=== PATIENT | male | born 1975 | race Caucasian/White ===

== ENCOUNTER 2016-08-31 17:46 | Emergency (ER) | payer OTHER ==
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
[2016-08-31 18:31] LABS: Basophils # (A) 0.1 k/uL (0-0.2); Basophils % (A) 1 %; Eosinophils # (A) 0.2 k/uL (0-0.7); Eosinophils % (A) 2 %; HCT 48.2 % (39.0-53.0); HDW 2.83; HGB 16.8 gm/dL (13.0-17.5); Luc # (Auto) 0.17; Luc % (Auto) 2; Lymphocytes # (A) 1.8 k/uL (1.0-4.8); Lymphocytes % (A) 21 %; MCH 32.1 pg (25.0-35.0); MCHC 34.8 g/dL (31.0-37.0); MCV 92.1 fL (80.0-100.0); Mean Platelet Volume 6.5; Monocytes # (A) 0.5 k/uL (0-1.0); Monocytes % (A) 6 %; Neutrophils # (A) 5.9 k/uL (1.3-7.7); Neutrophils % (A) 68 %; RBC 5.24 m/uL (4.30-5.90); RDW 13.2 % (11.5-15.5); WBC 8.6 k/uL (3.8-10.6); WBC (Perox) 8.42
--- NOTE | 2016-08-31 18:37 | XR ---
EXAMINATION TYPE: XR chest 2V DATE OF EXAM: 08/31/2016 6:34 PM COMPARISON: 13/08/2011 HISTORY: 40-year-old male with cough TECHNIQUE: PA and lateral views FINDINGS: The cardiomediastinal silhouette, aorta, and pulmonary vasculature are within normal limits. Lungs an d pleural spaces are clear. IMPRESSION: No acute cardiopulmonary process.
--- NOTE | 2016-08-31 18:39 | XR ---
EXAMINATION TYPE: XR cervical spine comp DATE OF EXAM: 08/31/2016 6:34 PM COMPARISON: NONE HISTORY: 40-year-old male with neck and jaw pain TECHNIQUE: 5 views FINDINGS: No predental space widening or prevertebral soft tissue swelling. Reversal of the normal cervical kostas dosis could be positional or due to muscle spasm. Alignment is maintained. Moderate disc space narrow ing with endplate spondylosis especially in the mid cervical spine with corresponding uncovertebral j oint arthropathy. On the left, no significant bony spondylotic neuroforaminal narrowing. On the right , there is mild narrowing at C3-C4. Normal odontoid view. IMPRESSION: Moderate spondylotic change mid cervical spine. Reversal of the normal cervical lordosis could be pos itional or due to muscle spasm. Mild bony spondylotic neuroforaminal narrowing on the right at C3-C4.
[2016-08-31 18:40] LABS: ALT 53 U/L (21-72); AST 31 U/L (17-59); Alkaline Phosphatase 77 U/L (38-126); Anion Gap 12 mmol/L; Blood Urea Nitrogen 17 mg/dL (9-20); Calcium 10.1 mg/dL (8.4-10.2); Carbon Dioxide 25 mmol/L (22-30); Chloride 103 mmol/L (98-107); Glucose 166 mg/dL (74-99); Non-African American GFR(MDRD) >60 (>60 ml/min/1.73 sqM); Potassium 4.1 mmol/L (3.5-5.1); Sodium 140 mmol/L (137-145); Total Bilirubin 0.7 mg/dL (0.2-1.3); Total Protein 7.9 g/dL (6.3-8.2)
--- NOTE | 2016-08-31 18:46 | XR ---
EXAMINATION TYPE: XR mandible complete DATE OF EXAM: 08/31/2016 6:38 PM COMPARISON: NONE HISTORY: 40-year-old male with a jaw pain TECHNIQUE: 5 views FINDINGS: Leftward nasal septal deviation. There is a plate with a 4 screws at the level of the mandibular body on the left. Some subtle cortical lucency along the inferior margin of the mandibular body at this l evel likely relates to residual fracture deformity. No acute fracture, periostitis, or emilio osteomye litis is seen. The TMJs appear intact. Patient is partially edentulous. Long styloid processes. IMPRESSION: 1. Prior plate and screw fixation along the lateral margin of the left mandibular body. 2. Leftward nasal septal deviation and partially dentulous. No acute osseous abnormality seen. 3. Long styloid processes may represent incidental ligamentous ossification. Correlate for any sympto ms of [place] syndrome.
[2016-08-31 19:05] VITALS: BP 168/96; PULSE 110; RESP 17; TEMP 97.8
== END 2016-08-31 19:22 | disposition home or self-care (01) ==
LOC: EC 17:46
DX: S03.42XA Sprain of jaw, left side, initial encounter (principal); J06.9 Acute upper respiratory infection, unspecified; F17.200 Nicotine dependence, unspecified, uncomplicated; M47.812 Spondylosis without myelopathy or radiculopathy, cervical region; M99.71 Connective tissue and disc stenosis of intervertebral foramina of cervical region; Z79.899 Other long term (current) drug therapy; Z98.890 Other specified postprocedural states; Y04.0XXA Assault by unarmed brawl or fight, initial encounter
CPT/HCPCS: 36415; 70110; 71020; 72050; 80053; 85025; 99284

== ENCOUNTER 2017-12-30 11:33 | Emergency (ER) | payer OTHER ==
[2017-12-30 11:42] VITALS: RESP 18
[2017-12-30] MEDS ORDERED: LIDOCAINE 1% INJ 10MG/ML (20 ML MDV) SQ ONE (13:46)
--- NOTE | 2017-12-30 13:56 | ED ---
Skin/Abscess/FB HPI - General Chief complaint: Skin/Abscess/Foreign Body Stated complaint: Abcess on knee Time Seen by Provider: 12/30/17 12:46 Source: patient Mode of arrival: ambulatory Limitations: no limitations - History of Present Illness Initial comments: This a 42-year-old male past medical history of hypertension and previous MRSA infection in 2014 who presents today for chief complaint of boil to the left anterior thigh. Patient states that Friday he noticed a small palpable-like lesion to the left anterior thigh superior to the knee, he was able to squeeze the area and remove some pus in the shower. His girlfriend stated she was able to get black hair out it when squeezing it Friday. When the redness surrounding the pimple-like lesion was expanding pt presented to the ER for antibiotics worried about a MRSA infection. Patient denies any recent fever, chills, shortness of breath, chest pain, back pain, abdominal pain, nausea or vomiting, numbness or tingling, dysuria or hematuria, constipation or diarrhea, headaches or visual changes, or any other complaints. - Related Data Home Medications Medication Instructions Recorded Confirmed Dextroamphetamine/Amphetamine 30 mg PO AC-TID 08/31/16 12/30/17 [Adderall] Gabapentin 600 mg PO AC-TID 08/31/16 12/30/17 Ibuprofen [Motrin] 800 mg PO Q8H PRN 12/30/17 12/30/17 Promethaz-Cod 6.25-10 mg/5 ml 5 ml PO HS 12/30/17 12/30/17 [Phenergan with Codeine] Previous Rx's Medication Instructions Recorded Cephalexin [Keflex] 500 mg PO Q6HR 7 Days #28 cap 12/30/17 Sulfamethox-Tmp 800-160Mg [Bactrim 1 tab PO Q12HR 7 Days #14 tab 12/30/17 DS 800-160 mg] Allergies Allergy/AdvReac Type Severity Reaction Status Date / Time No Known Allergies Allergy Verified 12/30/17 13:01 Review of Systems ROS Statement: Those systems with pertinent positive or pertinent negative responses have been documented in the HPI. ROS Other: All systems not noted in ROS Statement are negative. Constitutional: Denies: fever, chills, weakness, weight change Eyes: Denies: vision change ENT: Denies: throat pain Respiratory: Denies: cough, dyspnea, wheezes, hemoptysis, stridor Cardiovascular: Denies: chest pain, palpitations, orthopnea Endocrine: Denies: fatigue Gastrointestinal: Denies: abdominal pain, nausea, vomiting, diarrhea, constipation Genitourinary: Denies: urgency, dysuria, frequency, hematuria Musculoskeletal: Denies: back pain, joint swelling, arthralgia Skin: Denies: rash, lesions Neurological: Denies: numbness, paresthesias, confusion, abnormal gait Past Medical History Past Medical History: No Reported History Additional Past Medical History / Comment(s): neck pain History of Any Multi-Drug Resistant Organisms: MRSA Date of last positivie culture/infection: 12/28/14 MDRO Source:: Right Leg Past Surgical History: No Surgical Hx Reported Additional Past Surgical History / Comment(s): jaw surgery Past Psychological History: No Psychological Hx Reported Smoking Status: Current every day smoker Past Alcohol Use History: None Reported Past Drug Use History: None Reported General Exam - General Exam Comments Initial Comments: General: The patient is awake and alert, in no distress, and does not appear acutely ill. Eye: Pupils are equal, round and reactive to light, extra-ocular movements are intact. No nystagmus. There is normal conjunctiva bilaterally. No signs of icterus. Ears, nose, mouth and throat: There are moist mucous membranes and no oral lesions. Neck: The neck is supple, there is no tenderness or JVD. Cardiovascular: There is a regular rate and rhythm. No murmur, rub or gallop is appreciated. Respiratory: Lungs are clear to auscultation, respirations are non-labored, breath sounds are equal. No wheezes, stridor, rales, or rhonchi. Musculoskeletal: Normal ROM, no tenderness of the LE b/l. Strength 5/5 of the LE b/l. Sensation intact. Pulses equal bilaterally 2+. Neurological: A&O x 3. CN II-XII intact, There are no obvious motor or sensory deficits. Coordination appears grossly intact. Speech is normal. Skin: Skin is warm and dry and no rashes or lesions are noted. Warm, tender circular area of induration with overlying erythema about 4 x 4 centimeters just superior to the left knee over the anterior thigh. There is a central opening, no active drainage. Blanchable. Psychiatric: Cooperative, appropriate mood & affect, normal judgment. Limitations: no limitations Course Vital Signs 12/30/17 12/30/17 11:38 15:18 Temperature 99.3 F 97.7 F Pulse Rate 126 H 104 H Respiratory 18 18 Rate Blood Pressure 124/82 160/74 O2 Sat by Pulse 98 98 Oximetry Procedures - Procedures Initial comment: Abscess cleansed with iodine, patient refused lidocaine anesthesia locally stating it hurts just as much as a poke with the scalpel. Past centimeter incision was made over the anterior abscess a very small amount of purulent drainage was removed from the abscess and cultured. Area irrigated with sterile water. Sterile bandage applied. Medical Decision Making - Medical Decision Making 42-year-old male with past medical history of MRSA infection presenting for abscess to the left anterior thigh. Physical examination revealed a palpable abscess, that was indurated with surrounding erythema concerning for cellulitis abscess. As this was indeed, drainage cx. Patient was started on Bactrim and Keflex, for soft tissue infection with MRSA coverage. Case is discussed in detail and patient was evaluated person by Dr. Alarcon who agrees the impression and plan. Patient heart rate is elevated at 126, however he states his heart rate is never below 100bpm, he takes Adderall and took 2 coffees in the waiting room. It is time for patient is stable for discharge, with instruction to follow primary care provider one to 2 days. Patient was instructed to return to emergency department for worsening symptoms. Disposition Clinical Impression: Cellulitis and abscess of left lower extremity Disposition: HOME SELF-CARE Condition: Good Instructions: Abscess Incision and Drainage (ED) Additional Instructions: Please use medication as discussed. Please follow-up with family doctor in the next 2 days of symptoms have not improved. Please return to emergency room if the symptoms increase or worsen or for any other concerns. Prescriptions: Cephalexin [Keflex] 500 mg PO Q6HR 7 Days #28 cap Sulfamethox-Tmp 800-160Mg [Bactrim DS 800-160 mg] 1 tab PO Q12HR 7 Days #14 tab Is patient prescribed a controlled substance at d/c from ED?: No Referrals: Alfredo Aguirre MD [Primary Care Provider] - 1-2 days Time of Disposition: 14:55
[2017-12-30 15:19] VITALS: BP 160/74; PULSE 104; TEMP 97.7
== END 2017-12-30 15:18 | disposition home or self-care (01) ==
LOC: EC 11:33
DX: L02.416 Cutaneous abscess of left lower limb (principal); L03.116 Cellulitis of left lower limb; F17.200 Nicotine dependence, unspecified, uncomplicated; Z86.14 Personal history of Methicillin resistant Staphylococcus aureus infection; Z79.899 Other long term (current) drug therapy
CPT/HCPCS: 10060; 87070; 87077; 87186; 87205; 99283

== ENCOUNTER 2019-07-21 19:07 | Emergency (ER) | payer OTHER ==
[2019-07-21 19:35] VITALS: RESP 18
--- NOTE | 2019-07-21 19:36 | ED ---
General Adult HPI - General Source: patient, RN notes reviewed, old records reviewed Mode of arrival: ambulatory Limitations: no limitations <Michael Alarcon - Last Filed: 07/21/19 20:50> <Sanjeev Fields - Last Filed: 07/21/19 22:20> - General Chief complaint: Chest Pain Stated complaint: Chest pain Time Seen by Provider: 07/21/19 19:10 - History of Present Illness Initial comments: This is a 43-year-old male who presents emergency Department complaining of left-sided chest pain he states the pain mostly starts in the back and radiates to the chest. Patient states she's been coughing last 3 days and he had a fever vomited 3 and that stopped yesterday. Patient states the pain is there particularly when he coughs or when he moves. Patient when he sits still and isn't taking deep breaths or coughing he has no pain patient states he did not the flu shot.. Patient states when he starts having that sharp chest pain it is difficult to catch his breath but in general he is not short of breath he denies any diaphoresis or nausea. Patient states she does smoke and does have high blood pressure. Patient states his mother father or siblings are free of cardiac disease at this time. Patient denies any swelling to her legs or calf tenderness. Patient states the last day had a fever was yesterday. Patient stated that the exertion did not appear to affect his chest pain at all. (Michael Alarcon) - Related Data Home Medications Medication Instructions Recorded Confirmed Ibuprofen [Motrin] 800 mg PO TID PRN 12/30/17 07/21/19 Gabapentin 600 mg PO TID PRN 07/21/19 07/21/19 Lisdexamfetamine Dimesylate 30 mg PO DAILY 07/21/19 07/21/19 [Vyvanse] Metoprolol Succinate (ER) [Toprol 50 mg PO DAILY 07/21/19 07/21/19 Xl] Previous Rx's Medication Instructions Recorded Ibuprofen 800 mg PO TID #20 tablet 07/21/19 predniSONE 60 mg PO DAILY #30 tab 07/21/19 Allergies Allergy/AdvReac Type Severity Reaction Status Date / Time No Known Allergies Allergy Verified 07/21/19 22:07 Review of Systems ROS Other: All systems not noted in ROS Statement are negative. <Michael Alarcon - Last Filed: 07/21/19 20:50> ROS Other: All systems not noted in ROS Statement are negative. <Sanjeev Fields - Last Filed: 07/21/19 22:20> ROS Statement: Those systems with pertinent positive or pertinent negative responses have been documented in the HPI. Past Medical History Past Medical History: No Reported History Additional Past Medical History / Comment(s): neck pain History of Any Multi-Drug Resistant Organisms: MRSA Date of last positivie culture/infection: 12/30/17 MDRO Source:: LEG Past Surgical History: No Surgical Hx Reported Additional Past Surgical History / Comment(s): jaw surgery Past Psychological History: No Psychological Hx Reported Smoking Status: Current every day smoker Past Alcohol Use History: None Reported Past Drug Use History: None Reported <Michael Alarcon - Last Filed: 07/21/19 20:50> General Exam Limitations: no limitations <Michael Alarcon - Last Filed: 07/21/19 20:50> - General Exam Comments Initial Comments: GENERAL: Patient is well-developed and well-nourished. Patient is nontoxic and well- hydrated and is in no acute distress. ENT: Neck is soft and supple. No significant lymphadenopathy is noted. Oropharynx is clear. Moist mucous membranes. Neck has full range of motion without miko citing any pain. EYES: The sclera were anicteric and conjunctiva were pink and moist. Extraocular movements were intact and pupils were equal round and reactive to light. Eyelids were unremarkable. PULMONARY: Unlabored respirations. Good breath sounds bilaterally. No audible rales rhonchi or wheezing was noted. CARDIOVASCULAR: There is a regular rate and rhythm without any murmurs gallops or rubs. Patient had some left upper thoracic pain with deep breathing or coughing when I was in the room. ABDOMEN: Soft and nontender with normal bowel sounds. SKIN: Skin is clear with no lesions or rashes and otherwise unremarkable. NEUROLOGIC: Patient is alert and oriented x3. Cranial nerves II through XII are grossly intact. Motor and sensory are also intact. Normal speech, volume and content. Symmetrical smile. MUSCULOSKELETAL: Normal extremities with adequate strength and full range of motion. No lower extremity swelling or edema. No calf tenderness. LYMPHATICS: No significant lymphadenopathy is noted PSYCHIATRIC: Normal psychiatric evaluation. (Michael Alarcon) Course Vital Signs 07/21/19 07/21/19 07/21/19 19:09 19:11 20:11 Temperature 97.8 F Pulse Rate 120 H 122 H 108 H Respiratory 20 18 18 Rate Blood Pressure 152/91 142/95 143/94 O2 Sat by Pulse 99 97 96 Oximetry 07/21/19 21:40 Temperature 98 F Pulse Rate 106 H Respiratory 18 Rate Blood Pressure 136/98 O2 Sat by Pulse 98 Oximetry Medical Decision Making - Lab Data Result diagrams: 07/21/19 19:27 07/21/19 19:27 <Michael Alarcon - Last Filed: 07/21/19 20:50> - Lab Data Result diagrams: 07/21/19 19:27 07/21/19 19:27 <Sanjeev Fields - Last Filed: 07/21/19 22:20> - Medical Decision Making EKG shows sinus tachycardia at 116 bpm AL interval 264 QRS is 74 Q-T intervals 300 QTC is 417. Patient's EKG shows no ST segment elevation or depression. Dr. Li will be taking over the care of this patient at 9 PM (Michael Alarcon) - Lab Data Lab Results 07/21/19 07/21/19 07/21/19 Range/Units 19:27 19:27 19:27 WBC 8.7 (3.8-10.6) k/uL RBC 5.52 (4.30-5.90) m/uL Hgb 17.0 (13.0-17.5) gm/dL Hct 49.0 (39.0-53.0) % MCV 88.8 (80.0-100.0) fL MCH 30.7 (25.0-35.0) pg MCHC 34.6 (31.0-37.0) g/dL RDW 12.5 (11.5-15.5) % Plt Count 244 (150-450) k/uL Neutrophils % 64 % Lymphocytes % 24 % Monocytes % 6 % Eosinophils % 3 % Basophils % 1 % Neutrophils # 5.6 (1.3-7.7) k/uL Lymphocytes # 2.1 (1.0-4.8) k/uL Monocytes # 0.5 (0-1.0) k/uL Eosinophils # 0.2 (0-0.7) k/uL Basophils # 0.1 (0-0.2) k/uL PT (9.0-12.0) sec INR (<1.2) APTT (22.0-30.0) sec D-Dimer (<0.60) mg/L FEU Sodium 135 L (137-145) mmol/L Potassium 4.3 (3.5-5.1) mmol/L Chloride 101 (98-107) mmol/L Carbon Dioxide 25 (22-30) mmol/L Anion Gap 9 mmol/L BUN 18 (9-20) mg/dL Creatinine 1.19 (0.66-1.25) mg/dL Est GFR (CKD-EPI)AfAm 87 (>60 ml/min/1.73 sqM) Est GFR (CKD-EPI)NonAf 75 (>60 ml/min/1.73 sqM) Glucose 216 H (74-99) mg/dL Calcium 9.3 (8.4-10.2) mg/dL Magnesium 1.8 (1.6-2.3) mg/dL Total Bilirubin 0.3 (0.2-1.3) mg/dL AST 29 (17-59) U/L ALT 27 (4-49) U/L Alkaline Phosphatase 88 (38-126) U/L Troponin I <0.012 (0.000-0.034) ng/mL Total Protein 6.8 (6.3-8.2) g/dL Albumin 4.1 (3.5-5.0) g/dL Influenza Type A RNA (Not Detectd) Influenza Type B (PCR) (Not Detectd) 07/21/19 07/21/19 Range/Units 19:40 20:27 WBC (3.8-10.6) k/uL RBC (4.30-5.90) m/uL Hgb (13.0-17.5) gm/dL Hct (39.0-53.0) % MCV (80.0-100.0) fL MCH (25.0-35.0) pg MCHC (31.0-37.0) g/dL RDW (11.5-15.5) % Plt Count (150-450) k/uL Neutrophils % % Lymphocytes % % Monocytes % % Eosinophils % % Basophils % % Neutrophils # (1.3-7.7) k/uL Lymphocytes # (1.0-4.8) k/uL Monocytes # (0-1.0) k/uL Eosinophils # (0-0.7) k/uL Basophils # (0-0.2) k/uL PT 9.8 (9.0-12.0) sec INR 0.9 (<1.2) APTT 24.0 (22.0-30.0) sec D-Dimer 0.20 (<0.60) mg/L FEU Sodium (137-145) mmol/L Potassium (3.5-5.1) mmol/L Chloride (98-107) mmol/L Carbon Dioxide (22-30) mmol/L Anion Gap mmol/L BUN (9-20) mg/dL Creatinine (0.66-1.25) mg/dL Est GFR (CKD-EPI)AfAm (>60 ml/min/1.73 sqM) Est GFR (CKD-EPI)NonAf (>60 ml/min/1.73 sqM) Glucose (74-99) mg/dL Calcium (8.4-10.2) mg/dL Magnesium (1.6-2.3) mg/dL Total Bilirubin (0.2-1.3) mg/dL AST (17-59) U/L ALT (4-49) U/L Alkaline Phosphatase (38-126) U/L Troponin I (0.000-0.034) ng/mL Total Protein (6.3-8.2) g/dL Albumin (3.5-5.0) g/dL Influenza Type A RNA Not Detected (Not Detectd) Influenza Type B (PCR) Not Detected (Not Detectd) Disposition <Michael Alarcon - Last Filed: 07/21/19 20:50> Is patient prescribed a controlled substance at d/c from ED?: No <Sanjeev Fields - Last Filed: 07/21/19 22:20> Clinical Impression: Pleuritis Disposition: HOME SELF-CARE Condition: Good Instructions (If sedation given, give patient instructions): Pleurisy (ED) Prescriptions: Ibuprofen 800 mg PO TID #20 tablet predniSONE 60 mg PO DAILY #30 tab Referrals: Precious Simpson MD [Primary Care Provider] - 1-2 days
[2019-07-21 19:49] LABS: Basophils # (A) 0.1 k/uL (0-0.2); Basophils % (A) 1 %; Eosinophils # (A) 0.2 k/uL (0-0.7); Eosinophils % (A) 3 %; Lymphocytes # (A) 2.1 k/uL (1.0-4.8); Lymphocytes % (A) 24 %; MCH 30.7 pg (25.0-35.0); MCHC 34.6 g/dL (31.0-37.0); MCV 88.8 fL (80.0-100.0); Mean Platelet Volume 7.1; Monocytes # (A) 0.5 k/uL (0-1.0); Monocytes % (A) 6 %; Neutrophils # (A) 5.6 k/uL (1.3-7.7); Neutrophils % (A) 64 %; Platelet Count 244 k/uL (150-450); RBC 5.52 m/uL (4.30-5.90); RDW 12.5 % (11.5-15.5); WBC 8.7 k/uL (3.8-10.6)
--- NOTE | 2019-07-21 19:51 | XR ---
EXAMINATION TYPE: XR chest 2V DATE OF EXAM: 07/21/2019 COMPARISON: 08/31/2016 HISTORY: Intermittent chest pain TECHNIQUE: FINDINGS: Heart and mediastinum are normal. Lungs are clear. Diaphragm is normal. Bony thorax appears normal. There is slight thoracic dextroscoliosis. There are chest leads. IMPRESSION: No cardiopulmonary disease. No change.
[2019-07-21 19:58] LABS: Albumin 4.1 g/dL (3.5-5.0); Calcium 9.3 mg/dL (8.4-10.2); Magnesium 1.8 mg/dL (1.6-2.3); Potassium 4.3 mmol/L (3.5-5.1); Total Bilirubin 0.3 mg/dL (0.2-1.3); Total Protein 6.8 g/dL (6.3-8.2)
[2019-07-21 21:12] LABS: D-Dimer 0.2 mg/L FEU (<0.60); INR 0.9 (<1.2); Prothrombin Time 9.8 sec (9.0-12.0)
[2019-07-21 21:40] VITALS: BP 136/98; PULSE 106; TEMP 98
[2019-07-21] MEDS ORDERED: predniSONE 20 MG TAB PO STA (22:12)
== END 2019-07-21 22:32 | disposition home or self-care (01) ==
LOC: EC 19:07
DX: R09.1 Pleurisy (principal); R00.0 Tachycardia, unspecified; M54.6 Pain in thoracic spine; R05 Cough; F17.200 Nicotine dependence, unspecified, uncomplicated; Z86.14 Personal history of Methicillin resistant Staphylococcus aureus infection
CPT/HCPCS: 36415; 93005; 85379; 80053; 83735; 84484; 85025; 85610; 85730; 87502; 71046; 99285; J7512

== ENCOUNTER 2024-04-25 13:53 | Emergency (ER) | payer OTHER ==
[2024-04-25 14:03] VITALS: TEMP 98.8
--- NOTE | 2024-04-25 14:39 | XR ---
EXAMINATION TYPE: XR lumbar spine 2 or 3V DATE OF EXAM: 04/25/2024 2:31 PM COMPARISON: None available. CLINICAL INDICATION: Male, 48 years old with history of pain; [facility] TECHNIQUE: XR lumbar spine 2 or 3V - Frontal, lateral and coned in L5-S1 lateral views of the spine. FINDINGS: 5 lumbar type vertebral bodies are present for the purposes of this examination. Possible m ild age-indeterminate compression deformity of the L1 vertebral body. Age-indeterminate compression d eformities of the T11 and T12 vertebral bodies also noted, likely present on previous chest 07/21/2019. No acute traumatic subluxation. Multilevel facet arthropathy, most dense at L4-5 and L5-S1 . Mild anterior ossified formation. Alignment otherwise appears maintained. Moderate colonic stool bu rden. IMPRESSION: 1. Age-indeterminate mild compression deformity of the L1 vertebral body. Likely chronic compression deformities of T11 and T12. 2. Multilevel lumbosacral spine degenerative changes as above. [facility], , 04/25/2024 2:37 PM
[2024-04-25 14:57] LABS: Basophils % (A) 0 %; Eosinophils # (A) 0.2 k/uL (0-0.7); Eosinophils % (A) 2 %; HCT 50.1 % (39.0-53.0); HGB 17.4 gm/dL (13.0-17.5); Lymphocytes # (A) 1.5 k/uL (1.0-4.8); Lymphocytes % (A) 17 %; MCH 30.9 pg (25.0-35.0); MCHC 34.8 g/dL (31.0-37.0); MCV 88.9 fL (80.0-100.0); Mean Platelet Volume 7.6; Monocytes # (A) 0.5 k/uL (0-1.0); Monocytes % (A) 5 %; Neutrophils # (A) 6.6 k/uL (1.3-7.7); Neutrophils % (A) 74 %; Platelet Count 252 k/uL (150-450); RBC 5.64 m/uL (4.30-5.90); RDW 12.6 % (11.5-15.5); WBC 8.9 k/uL (3.8-10.6)
[2024-04-25 15:11] LABS: ALT 25 U/L (4-49); AST 23 U/L (17-59); African American GFR (CKD) >90 (>60 ml/min/1.73 sqM); Alkaline Phosphatase 117 U/L (38-126); Anion Gap 7 mmol/L; Blood Urea Nitrogen 16 mg/dL (9-20); Calcium 9.4 mg/dL (8.4-10.2); Carbon Dioxide 27 mmol/L (22-30); Chloride 98 mmol/L (98-107); Glucose 416 mg/dL (74-99); Non-African American GFR(CKD) >90 (>60 ml/min/1.73 sqM); Potassium 4.4 mmol/L (3.5-5.1); Sodium 132 mmol/L (137-145); Total Bilirubin 0.6 mg/dL (0.2-1.3)
--- NOTE | 2024-04-25 15:11 | ED ---
Back Pain HPI - General Chief Complaint: Back Pain/Injury Stated Complaint: Back Pain Time Seen by Provider: 04/25/24 14:07 Source: patient, RN notes reviewed Limitations: no limitations - History of Present Illness Initial Comments: 48-year-old male presents emergency department chief complaint of back pain. Patient dates he has a history of acne but states that this seems a little worse. States it is more in his sides. He denies any bowel, bladder and cons retention no saddle anesthesias. No lower extremity weakness. Patient has type II diabetic states he does not currently have his metformin. He states his heart rate is elevated current baseline. Patient denies chest pain or shortness of breath. He states has been moving and states that he feels like he strained his back moving objects at his house. - Related Data Home Medications Medication Instructions Recorded Confirmed Ibuprofen [Motrin] 800 mg PO TID PRN 12/30/17 07/21/19 Gabapentin 600 mg PO TID PRN 07/21/19 07/21/19 Lisdexamfetamine Dimesylate 30 mg PO DAILY 07/21/19 07/21/19 [Vyvanse] Metoprolol Succinate (ER) [Toprol 50 mg PO DAILY 07/21/19 07/21/19 Xl] Previous Rx's Medication Instructions Recorded Ibuprofen 800 mg PO TID #20 tablet 07/21/19 predniSONE 60 mg PO DAILY #30 tab 07/21/19 Cyclobenzaprine [Flexeril] 10 mg PO TID PRN #15 tab 04/25/24 Ketorolac [Toradol] 10 mg PO Q8HR #15 tab 04/25/24 metFORMIN HCL [Glucophage] 500 mg PO BID #60 tab 04/25/24 valACYclovir HCL [Valtrex] 1,000 mg PO TID #21 tablet 04/25/24 Allergies Allergy/AdvReac Type Severity Reaction Status Date / Time No Known Allergies Allergy Verified 04/25/24 13:58 Review of Systems ROS Statement: Those systems with pertinent positive or pertinent negative responses have been documented in the HPI. ROS Other: All systems not noted in ROS Statement are negative. Past Medical History Past Medical History: Diabetes Mellitus Additional Past Medical History / Comment(s): neck pain. herniated disc in back and neck. DDD History of Any Multi-Drug Resistant Organisms: MRSA Date of last positivie culture/infection: 12/30/17 MDRO Source:: LEG Past Surgical History: No Surgical Hx Reported Additional Past Surgical History / Comment(s): jaw surgery Past Psychological History: No Psychological Hx Reported Smoking Status: Current every day smoker Past Alcohol Use History: None Reported Past Drug Use History: None Reported General Exam Limitations: no limitations General appearance: alert, in no apparent distress Head exam: Present: atraumatic, normocephalic, normal inspection Eye exam: Present: normal appearance, PERRL, EOMI. Absent: scleral icterus, conjunctival injection, periorbital swelling ENT exam: Present: normal exam, mucous membranes moist Neck exam: Present: normal inspection, full ROM. Absent: tenderness, meningismus, lymphadenopathy Respiratory exam: Present: normal lung sounds bilaterally. Absent: respiratory distress, wheezes, rales, rhonchi, stridor Cardiovascular Exam: Present: normal rhythm, tachycardia, normal heart sounds. Absent: systolic murmur, diastolic murmur, rubs, gallop, clicks GI/Abdominal exam: Present: soft, normal bowel sounds. Absent: distended, tenderness, guarding, rebound, rigid Extremities exam: Present: normal inspection, full ROM, normal capillary refill. Absent: tenderness, pedal edema, joint swelling, calf tenderness Back exam: Present: tenderness, muscle spasm, paraspinal tenderness. Absent: full ROM, CVA tenderness (R), CVA tenderness (L), vertebral tenderness Neurological exam: Present: alert, oriented X3, CN II-XII intact, reflexes normal. Absent: motor sensory deficit Course Vital Signs 04/25/24 13:58 Temperature 98.8 F Pulse Rate 125 H Respiratory 18 Rate Blood Pressure 146/87 O2 Sat by Pulse 96 Oximetry Medical Decision Making - Medical Decision Making Was pt. sent in by a medical professional or institution (, PA, [employer], urgent care, hospital, or [facility]...) When possible be specific @ -No Did you speak to anyone other than the patient for history (EMS, parent, family, police, friend...)? What history was obtained from this source @ -No Did you review nursing and triage notes (agree or disagree)? Why? @ -I reviewed and agree with nursing and triage notes Were old charts reviewed (outside hosp., previous admission, EMS record, old EKG, old radiological studies, urgent care reports/EKG's, [facility] records)? Report findings @ -No old charts were reviewed Differential Diagnosis (chest pain, altered mental status, abdominal pain women, abdominal pain men, vaginal bleeding, weakness, fever, dyspnea, syncope, headache, dizziness, GI bleed, back pain, seizure, CVA, palpatations, mental hea lth, musculoskeletal)? @ -Differential Back Pain: Strain, zoster, cauda equina syndrome, epidural abscess, vertebral osteomyelitis, discitis, fracture, subluxation, disc herniation, DJD, spinal stenosis, dissection, AAA, pancreatitis, peptic ulcer disease, pyelonephritis, kidney stone, this is not meant to be an all-inclusive list. EKG interpreted by me (3pts min.). @ -None X-rays interpreted by me (1pt min.). @ -X-ray lumbar spine showing chronic lumbar and thoracic compression fractures no acute abnormality otherwise CT interpreted by me (1pt min.). @ -None done U/S interpreted by me (1pt. min.). @ -None done What testing was considered but not performed or refused? (CT, X-rays, U/S, lab s)? Why? @ -None What meds were considered but not given or refused? Why? @ -None Did you discuss the management of the patient with other professionals (professionals i.e. , PA, [employer], lab, RT, psych nurse, social services specialist, die setter, teacher, bomb squad officer, high risk case manager)? Give summary @ -No Was smoking cessation discussed for >3mins.? @ -No Was critical care preformed (if so, how long)? @ -No Were there social determinants of health that impacted care today? How? (Homelessness, low income, unemployed, alcoholism, drug addiction, transportation, low edu. Level, literacy, decrease access to med. care, penitentiary, rehab)? @ -No Was there de-escalation of care discussed even if they declined (Discuss DNR or withdrawal of care, Hospice)? DNR status @ -No What co-morbidities impacted this encounter? (DM, HTN, Smoking, COPD, CAD, Cancer, CVA, ARF, Chemo, Hep., AIDS, mental health diagnosis, sleep apnea, morbid obesity)? @ -Diabetes Was patient admitted / discharged? Hospital course, mention meds given and route, prescriptions, significant lab abnormalities, going to OR and other pertinent info. @ -Discharge patient presented for lumbar back pain is found tachycardic patient does have hyperglycemia which is improved after insulin IV fluids. Patient states he feels better patient be discharged in stable condition with follow-up with PCP refill of his metformin. Patient has no red flag symptoms. Undiagnosed new problem with uncertain prognosis? @ -No Drug Therapy requiring intensive monitoring for toxicity (Heparin, Nitro, Insulin, Cardizem)? @ -No Were any procedures done? @ -No Diagnosis/symptom? @ -Hyperglycemia, lumbar back pain Acute, or Chronic, or Acute on Chronic? @ -Acute Uncomplicated (without systemic symptoms) or Complicated (systemic symptoms)? @ -Complicated Side effects of treatment? @ -No Exacerbation, Progression, or Severe Exacerbation? @ -Exacerbation Poses a threat to life or bodily function? How? (Chest pain, [place], [place], pneumonia, PE, COPD, DKA, ARF, appy, cholecystitis, CVA, Diverticulitis, Homicidal, Suicidal, threat to staff... and all critical care pts) @ -No - Lab Data Result diagrams: 04/25/24 14:48 04/25/24 14:48 Lab Results 04/25/24 04/25/24 Range/Units 14:48 14:48 WBC 8.9 (3.8-10.6) k/uL RBC 5.64 (4.30-5.90) m/uL Hgb 17.4 (13.0-17.5) gm/dL Hct 50.1 (39.0-53.0) % MCV 88.9 (80.0-100.0) fL MCH 30.9 (25.0-35.0) pg MCHC 34.8 (31.0-37.0) g/dL RDW 12.6 (11.5-15.5) % Plt Count 252 (150-450) k/uL MPV 7.6 Neutrophils % 74 % Lymphocytes % 17 % Monocytes % 5 % Eosinophils % 2 % Basophils % 0 % Neutrophils # 6.6 (1.3-7.7) k/uL Lymphocytes # 1.5 (1.0-4.8) k/uL Monocytes # 0.5 (0-1.0) k/uL Eosinophils # 0.2 (0-0.7) k/uL Basophils # 0.0 (0-0.2) k/uL Sodium 132 L (137-145) mmol/L Potassium 4.4 (3.5-5.1) mmol/L Chloride 98 (98-107) mmol/L Carbon Dioxide 27 (22-30) mmol/L Anion Gap 7 mmol/L BUN 16 (9-20) mg/dL Creatinine 0.74 (0.66-1.25) mg/dL Est GFR (CKD-EPI)AfAm >90 (>60 ml/min/1.73 sqM) Est GFR (CKD-EPI)NonAf >90 (>60 ml/min/1.73 sqM) Glucose 416 H (74-99) mg/dL Calcium 9.4 (8.4-10.2) mg/dL Total Bilirubin 0.6 (0.2-1.3) mg/dL AST 23 (17-59) U/L ALT 25 (4-49) U/L Alkaline Phosphatase 117 (38-126) U/L Total Protein 7.0 (6.3-8.2) g/dL Albumin 4.0 (3.5-5.0) g/dL Disposition Clinical Impression: Lumbar back pain, Hyperglycemia Disposition: HOME SELF-CARE Condition: Stable Instructions (If sedation given, give patient instructions): Acute Low Back Pain (ED) Additional Instructions: Please return to the Emergency Department if symptoms worsen or any other concerns. Prescriptions: Cyclobenzaprine [Flexeril] 10 mg PO TID PRN #15 tab PRN Reason: Muscle Spasm metFORMIN HCL [Glucophage] 500 mg PO BID #60 tab Ketorolac [Toradol] 10 mg PO Q8HR #15 tab valACYclovir HCL [Valtrex] 1,000 mg PO TID #21 tablet Is patient prescribed a controlled substance at d/c from ED?: No Referrals: Uriel José MD [Primary Care Provider] - 1-2 days Time of Disposition: 16:09
[2024-04-25] MEDS: SODIUM CHLORIDE 0.9% 1,000 ML IV STA (15:19)
[2024-04-25] MEDS: HYDROmorphone 0.5 MG/0.5 ML SYRINGE IVP STA (15:19)
[2024-04-25] MEDS: KETOROLAC 15 MG/ML 1 ML VIAL IM STA (15:20)
[2024-04-25] MEDS: INSULIN REGULAR 100 UNIT/ML VIAL (IV) IV ONE (15:21)
[2024-04-25 16:12] LABS: Glucose,Whole Blood 146 mg/dL (70-110)
[2024-04-25 16:36] VITALS: BP 141/89; PULSE 108; RESP 17
[2024-04-25] MEDS: ACET/COD 300 MG/30 MG STARTER PACK 6 TAB BTL PO STA (16:37)
== END 2024-04-25 16:38 | disposition home or self-care (01) ==
LOC: EC 13:53
DX: M54.50 Low back pain, unspecified (principal); E11.65 Type 2 diabetes mellitus with hyperglycemia; F17.200 Nicotine dependence, unspecified, uncomplicated; Z79.84 Long term (current) use of oral hypoglycemic drugs
CPT/HCPCS: 36415; 80053; 85025; 72100; 99284; 96372; 96374; J1885; J1171